=== PATIENT | male | born 1955 | race Caucasian/White ===

== ENCOUNTER → 2016-09-18 | Outpatient (CLI) | payer BC ==
--- NOTE | 2016-09-18 15:22 | RADRPT ---
PROCEDURE: XR bilateral knees. CLINICAL INDICATION: Knee pain TECHNIQUE: AP weightbearing, PA weightbearing, lateral weightbearing and sunrise views of each kne e are available for review. COMPARISON: None available FINDINGS: Right knee: There is moderate to severe osteoarthrosis involving the right medial tibial femoral compartment and patellofemoral compartment and mild osteoarthrosis involving the lateral tibial femoral compartment .This is associated with joint space narrowing, subchondral sclerosis and osteophytosis. Left knee: There is moderate to severe osteoarthrosis involving the left osteoarthrosis involving the right med ial tibial femoral compartment and patellofemoral compartment and mild osteoarthrosis involving the lateral tibial femoral compartment . This is associated with joint space narrowing, subchondral scle rosis and osteophytosis. There is otherwise normal mineralization, architecture and alignment. No fractures are identified. No osseous lesions are identified. The soft tissues are unremarkable. IMPRESSION: Moderate to severe osteoarthrosis involving the right osteoarthrosis involving the right medial tibi al femoral compartment and patellofemoral compartment and mild osteoarthrosis involving the lateral tibial femoral compartment Moderate to severe osteoarthrosis involving the left osteoarthrosis involving the right medial tibia l femoral compartment and patellofemoral compartment and mild osteoarthrosis involving the lateral t ibial femoral compartment . RPTAT: [facility] .Prasanna Saavedra MD, Date Time Electronically viewed and signed by .Prasanna Saavedra MD, on 09/18/2016 15:22 .B/
== END | disposition home or self-care (01) ==
LOC: HKI 14:37
PROVIDERS: ATTEND Orthopaedic Surgery
DX: M25.561 Pain in right knee (principal); M25.562 Pain in left knee; M17.0 Bilateral primary osteoarthritis of knee
CPT/HCPCS: 73564; G0463

== ENCOUNTER → 2016-10-09 | Outpatient (CLI) | payer BC | END | disposition home or self-care (01) | LOC: HKI 13:29 | PROVIDERS: ATTEND Orthopaedic Surgery | DX: M25.561 Pain in right knee (principal); M25.562 Pain in left knee; M17.0 Bilateral primary osteoarthritis of knee | CPT/HCPCS: J7327 ==